=== PATIENT | male | born 1975 | race American Indian/Alaskan Native ===

== ENCOUNTER 2017-02-01 01:10 | Emergency (ER) | payer OTHER ==
[2017-02-01 04:32] LABS: Bilirubin,Urine NEG (Negative); Blood,Urine NEG (Negative); Ketones,Urine NEG (Negative); Leukocyte Esterase,Urine NEG (Negative); Mucus,Urine 3+ /HPF; Nitrite,Urine NEG (Negative)
[2017-02-01] MEDS ORDERED: TORADOL IM ONE (06:03)
--- NOTE | 2017-02-01 06:03 | Emergency Department Report ---
HPI - General Chief Complaint: Back Pain/Injury Time Seen by Provider: 02/01/17 05:53 - HPI HPI: Patient is a 41-year-old male with no prior medical history presents to ED complaining of low back pain has been going on for several months. Patient states in the past since. Patient denies any recent trauma however injuring his back. Patient states pain is worsened when he bends to touch his toes makes certain movements. He denies loss of function on his back, legs, urinary symptoms or difficulty with bowel movement ED Past Medical Hx - Past Medical History Previous Medical History?: Yes Hx Asthma: Yes - Surgical History Past Surgical History?: No - Social History Smoking Status: Never Smoker Substance Use Type: None - Medications Home Medications: Home Medications Medication Instructions Recorded Confirmed Last Taken Type Cyclobenzaprine [Flexeril] 10 mg PO QHS PRN #20 tablet 02/01/[address] [Voltaren Dr] 75 mg PO BID #30 tablet 02/01/17 Unknown Rx ED Review of Systems ROS: Stated complaint: LOWER BACK PAIN Other details as noted in HPI Constitutional: denies: chills, fever Eyes: denies: eye pain, eye discharge, vision change ENT: denies: ear pain, throat pain Respiratory: denies: cough, shortness of breath, wheezing Cardiovascular: denies: chest pain, palpitations Endocrine: no symptoms reported Gastrointestinal: denies: abdominal pain, nausea, diarrhea Genitourinary: denies: urgency, dysuria Musculoskeletal: denies: back pain, joint swelling, arthralgia Skin: denies: rash, lesions Neurological: denies: headache, weakness, paresthesias Psychiatric: denies: anxiety, depression Hematological/Lymphatic: denies: easy bleeding, easy bruising Physical Exam - Physical Exam Vital Signs: Vital Signs 02/01/17 02/01/17 01:56 02:36 Temperature 98.2 F 98.2 F Pulse Rate 85 81 Respiratory 18 17 Rate Blood Pressure 137/91 137/91 O2 Sat by Pulse 99 99 Oximetry Physical Exam: GENERAL: Alert and oriented x3, no apparent distress, Normal Gait, atraumatic. HEAD: Head is normocephalic and a-traumatic. NECK: Supple. Non edematous, No lymphadenopathy No C-spine tenderness LUNGS: Symetrical with respiration, CTAB. HEART: S1, S2 present, regular rate and rhythm without murmur, Non tender to palpation BACK: Full range of motion, no spinal tenderness, nontender to palpation. Patient able to touch his toes but appearsto have some mild discomfort when he does EXTREMITIES/MUSCULOSKELETAL: No cyanosis, clubbing, rash, lesions or edema. Full ROM bilaterally. UE/LE Pulses 2+ bilaterally. LE and UE 5+ strength bilaterally, straight leg raise negative bilaterally. NEUROLOGIC: The patient is cooperative with no focal neurologic deficits. . Normal speech. Normal sensation in bilateral upper and lower extremities, No loss of sensation, SKIN: Warm and dry, No lesions, No ulceration or induration present. ED Course Vital Signs 02/01/17 02/01/17 01:56 02:36 Temperature 98.2 F 98.2 F Pulse Rate 85 81 Respiratory 18 17 Rate Blood Pressure 137/91 137/91 O2 Sat by Pulse 99 99 Oximetry ED Medical Decision Making - Medical Decision Making 41-year-old male presents with a lumbar radiculopathy ED course: I discussed this findings with the patient as this is a chronic matter and will need pain management and follow-up with primary care physician or possibly a neurologist if symptoms worsen discussed the patient to risk for this couple of days apply some heat to the affected back muscles. Vital signs are normal patient is in no acute distress Discussed with patient follow-up with primary care physician. Discussed the patient and take medications as prescribed. Patient has no neurological deficit. Patient is alert and oriented 3 and understands all instructions given. Discussed drowsiness effect of Flexeril makes her drowsy and not to operate machinery while taking flexeril Critical care attestation.: If time is entered above; I have spent that time in minutes in the direct care of this critically ill patient, excluding procedure time. ED Disposition Clinical Impression: Lumbar radiculopathy Disposition: DC-01 TO HOME OR SELFCARE Is pt being admited?: No Does the pt Need Aspirin: No Condition: Stable Instructions: Lumbar Radiculopathy (ED), Trigger Point Pain (ED), Heat Pack Application (ED) Additional Instructions: Make sure to follow up with the primary care physician as discussed. Take all your medications as you've been prescribed. If you have any worsening symptoms or develop new symptoms please return to ED immediately. Prescriptions: Cyclobenzaprine [Flexeril] 10 mg PO QHS PRN #20 tablet PRN Reason: Muscle Spasm Diclofenac [Voltarecarlie Noriega] 75 mg PO BID #30 tablet Referrals: PRIMARY CARE, [Primary Care Provider] - 3-5 Days ALEAH LEGER MD [Staff Physician] - 3-5 Days [facility] [Outside] - 3-5 Days [facility] [Outside] - 3-5 Days [facility] [Outside] - 3-5 Days Forms: Work/School Release Form Time of Disposition: 06:20
[2017-02-01] MEDS ORDERED: TORADOL ONE (06:08)
[2017-02-01 06:36] VITALS: BP 127/89
== END 2017-02-01 06:36 | disposition home or self-care (01) ==
LOC: ED 01:10
DX: M54.16 Radiculopathy, lumbar region (principal)
CPT/HCPCS: 81001; 96372; 99283; J1885